=== PATIENT | female | born 1985 | race Caucasian/White ===

== ENCOUNTER 2017-01-21 20:41 | Emergency (ER) | payer SELFPAY ==
[2017-01-21] MEDS ORDERED: Ondansetron INJ* 2 MG/ML VIAL IV ONE (21:07)
[2017-01-21] MEDS ORDERED: HYDROmorphone* 1 MG/ML 1 ML SYR IV ONE (21:07)
[2017-01-21] MEDS ORDERED: NS 0.9% 1000 ML* 1,000 ML IV ONE (21:07)
[2017-01-21 21:30] LABS: Hematocrit 35 % (35-47); Hemoglobin 11.9 g/dl (12.0-16.0); Mean Corpuscular HGB Conc 34 g/dl (31-36); Mean Corpuscular Hemoglobin 33 pg (27-31); Mean Corpuscular Volume 99 fL (80-97); Mean Platelet Volume 8 um3 (7.4-10.4); Red Blood Count 3.58 10^6/ul (4.0-5.4); Red Cell Distribution Width 13 % (10.5-15); White Blood Count 26.3 10^3/ul (3.5-10.8)
[2017-01-21 21:32] LABS: Add Diff/Slide Review? Slide Review Added; Comments Flag Yes
[2017-01-21 21:46] LABS: ALT 10 U/L (7-52); AST 13 U/L (13-39); Albumin 3.9 g/dL (3.2-5.2); Alkaline Phosphatase 45 U/L (34-104); Anion Gap 4 mmol/L (2-11); BUN/Creatinine Ratio 14.5 (8-20); Blood Urea Nitrogen 12 mg/dL (6-24); C Reactive Protein < 1.00 mg/L (< 5.00); CO2 Carbon Dioxide 25 mmol/L (22-32); Calcium 8.6 mg/dL (8.6-10.3); Chloride 109 mmol/L (101-111); EGFR African American 102.5 (>60); EGFR Non-African American 79.7 (>60); Globulin 2.7 g/dL (2-4); Glucose 113 mg/dL (70-100); Lipase 27 U/L (11.0-82.0); Potassium 3.6 mmol/L (3.5-5.0); Sodium 138 mmol/L (133-145); Total Protein 6.6 g/dL (6.4-8.9)
[2017-01-21] MEDS ORDERED: Iohexol 300* (CONTRAST) 10 ML SDV IV ONE (22:01)
--- NOTE | 2017-01-21 23:25 | ED ---
Jaja Ricci Edward, scribed for Stefan Land MD on 01/21/17 at 2112 . Complex/Multi-Sys Presentation - HPI Summary HPI Summary: 31 y/o female BIBA c/o N/V. Symptoms started at around 17:30 after the patient ate dinner. N/V now resolved. Associated sx: diffuse ABD pain characterized as a sharp pain, radiating to back. Patient states she is allergic to Penicillin. PMHx pyelonephritis. - History Of Current Complaint Chief Complaint: EDNauseaVomitDiarrh Time Seen by Provider: 01/21/17 20:58 Hx Obtained From: Patient Onset/Duration: Sudden Onset, Lasting Hours - Since 17:30 today Character: Sharp Associated Signs And Symptoms: Positive: Nausea, Vomiting, Abdominal Pain - radiating to her back. Negative: Diarrhea - Allergies/Home Medications Allergies/Adverse Reactions: Allergies Allergy/AdvReac Type Severity Reaction Status Date / Time Penicillins [PCN] Allergy Unknown Verified 01/21/17 20:53 Reaction Details PMH/Surg Hx/FS Hx/Imm Hx Previously Healthy: No GI History: Reports: Other GI Disorders - Gastrits History: Reports: Hx Kidney Infection, Hx Renal Disease Psychiatric History: Reports: Hx Anxiety, Hx Depression, Hx Community Mental Health [place] - [facility]: Ameena [facility] - Immunization History Date of Tetanus Vaccine: Unknown Date of Influenza Vaccine: None Infectious Disease History: No Infectious Disease History: Denies: Traveled Outside the [place] in Last 30 Days - Family History Known Family History: Positive: Diabetes, Other - Hodgkin's lymphoma - Social History Occupation: Unemployed Lives: With Family Alcohol Use: None Substance Use Type: Reports: Marijuana Substance Use Comment - Amount & Last Used: daily Smoking Status (MU): Never Smoked Tobacco Review of Systems Constitutional: Negative Eyes: Negative ENT: Negative Cardiovascular: Negative Respiratory: Negative Positive: Abdominal Pain, Vomiting, Nausea. Negative: Diarrhea Genitourinary: Negative Musculoskeletal: Negative Skin: Negative Neurological: Negative Psychological: Normal All Other Systems Reviewed And Are Negative: Yes Physical Exam Triage Information Reviewed: Yes Vital Signs On Initial Exam: Initial Vitals Temp Pulse Resp BP Pulse Ox 98.3 F 79 16 91/57 100 01/21/17 20:50 01/21/17 20:50 01/21/17 20:50 01/21/17 20:50 01/21/17 20:50 Vital Signs Reviewed: Yes Appearance: Positive: Well-Appearing, Pain Distress Skin: Positive: Warm, Skin Color Reflects Adequate Perfusion, Dry Head/Face: Positive: Normal Head/Face Inspection Eyes: Positive: Normal ENT: Positive: Normal ENT inspection Neck: Positive: Supple, Nontender Respiratory/Lung Sounds: Positive: Clear to Auscultation, Breath Sounds Present Cardiovascular: Positive: RRR Abdomen Description: Positive: Nontender, Soft Bowel Sounds: Positive: Present Musculoskeletal: Positive: Normal Neurological: Positive: Normal Psychiatric: Positive: Normal, Affect/Mood Appropriate - Alana Coma Scale Coma Scale Total: 15 Diagnostics - Vital Signs Vital Signs Temp Pulse Resp BP Pulse Ox 01/21/17 20:50 98.3 F 79 16 91/57 100 - Laboratory Lab Results: Lab Results 01/21/17 01/21/17 01/21/17 Range/Units 21:22 21:22 21:22 WBC 26.3 H (3.5-10.8) 10^3/ul RBC 3.58 L (4.0-5.4) 10^6/ul Hgb 11.9 L (12.0-16.0) g/dl Hct 35 (35-47) % MCV 99 H (80-97) fL MCH 33 H (27-31) pg MCHC 34 (31-36) g/dl RDW 13 (10.5-15) % Plt Count 316 (150-450) 10^3/ul MPV 8 (7.4-10.4) um3 Neut % (Auto) 89.8 H (38-83) % Lymph % (Auto) 5.7 L (25-47) % [place] % (Auto) 4.1 (1-9) % Eos % (Auto) 0.2 (0-6) % Baso % (Auto) 0.2 (0-2) % Absolute Neuts (auto) 23.6 H (1.5-7.7) 10^3/ul Absolute Lymphs (auto) 1.5 (1.0-4.8) 10^3/ul Absolute Monos (auto) 1.1 H (0-0.8) 10^3/ul Absolute Eos (auto) 0.1 (0-0.6) 10^3/ul Absolute Basos (auto) 0.1 (0-0.2) 10^3/ul Absolute Nucleated RBC 0 10^3/ul Nucleated RBC % 0 Sodium 138 (133-145) mmol/L Potassium 3.6 (3.5-5.0) mmol/L Chloride 109 (101-111) mmol/L Carbon Dioxide 25 (22-32) mmol/L Anion Gap 4 (2-11) mmol/L BUN 12 (6-24) mg/dL Creatinine 0.83 (0.51-0.95) mg/dL Est GFR ( Amer) 102.5 (>60) Est GFR (Non-Af Amer) 79.7 (>60) BUN/Creatinine Ratio 14.5 (8-20) Glucose 113 H (70-100) mg/dL Lactic Acid 1.0 (0.5-2.0) mmol/L Calcium 8.6 (8.6-10.3) mg/dL Total Bilirubin 0.40 (0.2-1.0) mg/dL AST 13 (13-39) U/L ALT 10 (7-52) U/L Alkaline Phosphatase 45 (34-104) U/L C-Reactive Protein < 1.00 (< 5.00) mg/L Total Protein 6.6 (6.4-8.9) g/dL Albumin 3.9 (3.2-5.2) g/dL Globulin 2.7 (2-4) g/dL Albumin/Globulin Ratio 1.4 (1-3) Lipase 27 (11.0-82.0) U/L Beta HCG, Quant < 0.60 mIU/mL Result Diagrams: 01/21/17 21:22 01/21/17 21:22 Lab Statement: Any lab studies that have been ordered have been reviewed, and results considered in the medical decision making process. Re-Evaluation - Re-Evaluation 1 Re-Evaluation Time: 21:35 Change: Improved Complex Multi-Symp Course/Dx Course Of Treatment: Ms. Maravilla presented with severe diffuse abdominal pain and vomiting. She improved with meds and fluids. Her WBC's were 26K and she is awaiting CT. - Diagnoses Provider Diagnoses: Abdominal pain Discharge - Discharge Plan Condition: Stable Disposition: OTHER Discharge Disposition Comment: Signed out to Dr. Martinez Patient Education Materials: Abdominal Pain (ED) Referrals: [facility] [place] PHYSICIAN REFERRAL [Outside] - 3 Days (Please f/u in 2-3 days) The documentation as recorded by the Jaja barrios Edward accurately reflects the service I personally performed and the decisions made by me, Stefan Land MD.
[2017-01-22] MEDS ORDERED: Ondansetron INJ* 2 MG/ML VIAL IV ONE (00:32)
[2017-01-22] MEDS ORDERED: Ondansetron INJ* 2 MG/ML VIAL ONE (00:33)
[2017-01-22] MEDS ORDERED: NS 0.9% 1000 ML* 1,000 ML IV ONE ×2 (02:34→03:56)
[2017-01-22 03:17] LABS: Urine Bilirubin Negative (Negative); Urine Glucose Negative (Negative); Urine Nitrite Negative (Negative)
[2017-01-22] MEDS ORDERED: Ketorolac INJ* 30 MG/ML 1 ML VIAL IV ONE (03:56)
[2017-01-22] MEDS ORDERED: Ondansetron ODT TAB* 4 MG PO ONE (03:56)
--- NOTE | 2017-01-22 04:02 | ED ---
I, Pamela Traore, scribed for Conrado Martinez MD on 01/22/17 at 0033 . Progress - Progress Note Progress Note: Pt was signed out from Dr. Land, pending dispo, awaiting CT Abd/Pel results. CT Abd/Pel reveals: 15 mm collapsing left ovarian cyst moderate amount of pelvic free fluid. Re-Evaluation - Re-Evaluation First Eval Re-Evaluation Time: 02:30 Change: Improved Comment: Discussed CT and lab results with the pt. Pain is improved, 3-4/10 around the umbilicus. Still slightly nauseous, much improved from when she came in. Will give IV fluids, try PO and run a UA. Second Eval Re-Evaluation Time: 03:56 Change: Improved Comment: She is doing a bit better. Will give Toradol IV then another trial of PO, then the pt is interested in going home Course/Dx - Course Course Of Treatment: NO CRITICAL CARE TIME. IMPROVED IN ED. DISCUSSED RESULTS WITH PATIENT. PAIN AND VOMITING STARTED AT THE SAME TIME IN MID AND UPPER ABDOMEN, NOT IN LLQ WERE CYST WAS SEEN ON CT. - Diagnoses Provider Diagnoses: Abdominal pain, Ovarian cyst, Vomiting, Dehydration The documentation as recorded by the bernieibLeón parsons Rebecca accurately reflects the service I personally performed and the decisions made by me, Conrado Martinez MD.
[2017-01-22 05:50] VITALS: BP 90/44
--- NOTE | 2017-01-22 07:56 | RAD ---
INDICATION: Diffuse abdominal pain in a 31-year-old COMPARISON: None TECHNIQUE: Axial source images were obtained from the hemidiaphragms to the symphysis pubis following administration of oral and intravenous contrast. 66.8 mL Omnipaque 300 was utilized. Coronal and sagittal reconstructed images were acquired. Lung bases: The lung bases are clear. Liver: The liver is top normal in size. There are no masses. There is no ductal dilatation. Gallbladder: There are no calcified gallstones. There is no evidence of wall thickening or pericholecystic fluid. Spleen: The spleen is normal in size. There are no masses. Pancreas: There is no focal pancreatic mass or ductal dilatation. Adrenal glands: There is no evidence of adrenal mass. Kidneys: The kidneys are normal in size and position. There are prompt nephrograms and there is prompt excretion bilaterally. There are no renal parenchymal masses. There is no evidence of nephrolithiasis. Adenopathy: There is no evidence of adenopathy by size criteria. Fluid collections: Moderate free fluid in the dependent portion of the pelvis. Vessels:There are no significant atherosclerotic changes involving the aorta. There is no focal aneurysm. The iliac vessels are normal in caliber. The IVC appears normal. GI tract: There are no acute CT bowel findings. There is no obstruction. The stomach and small bowel appear normal. The lower GI tract is normal. The cecum, ileocecal valve, and terminal ileum appear normal. The appendix is visualized and appear normal. Pelvic organs: The uterus and right adnexa appear normal. There is a 2.1 cm involuting or hemorrhagic left ovarian cyst Bladder: There are no bladder masses. Abdominal and pelvic soft tissues: The extraperitoneal abdominal and pelvic soft tissues appear normal.. Osseous structures: There are no acute osseous findings. Other: None IMPRESSION: MODERATE FREE FLUID WITH 2.1 CM INVOLUTING OR HEMORRHAGIC LEFT OVARIAN CYST.
== END 2017-01-22 05:51 | disposition home or self-care (01) ==
LOC: ED 20:41
DX: R10.84 Generalized abdominal pain (principal); R11.2 Nausea with vomiting, unspecified; N83.202 Unspecified ovarian cyst, left side; Z32.02 Encounter for pregnancy test, result negative; N28.9 Disorder of kidney and ureter, unspecified; F41.9 Anxiety disorder, unspecified; F32.9 Major depressive disorder, single episode, unspecified; Z88.0 Allergy status to penicillin; F12.90 Cannabis use, unspecified, uncomplicated
CPT/HCPCS: 36415; 74177; 80053; 81003; 83605; 83690; 84702; 85025; 86140; 96361; 96374; 96375; 96376; 99285; A9270-GY; J1170; J1885; J2405; Q9967

== ENCOUNTER 2017-12-09 07:47 | Emergency (ER) | payer SELFPAY ==
[2017-12-09] MEDS ORDERED: Al Hydrox/Mg Hydrox/Simet LIQ* 30 ML UDC PO ONE (09:29)
[2017-12-09] MEDS ORDERED: Lidocaine 2% VISCOUS* 15 ML UDC PO ONE (09:29)
[2017-12-09 09:34] LABS: ABS Basophils 0.1 10^3/ul (0-0.2); ABS Eosinophils 0.1 10^3/ul (0-0.6); ABS Lymphocytes 1.7 10^3/ul (1.0-4.8); ABS Monocytes 0.7 10^3/ul (0-0.8); ABS Neutrophils 10.1 10^3/ul (1.5-7.7); ABS Nucleated RBC 0 10^3/ul; Eosinophil % 0.5 % (0-6); Hematocrit 39 % (35-47); Lymphocyte % 13.2 % (25-47); Mean Corpuscular HGB Conc 34 g/dl (31-36); Mean Corpuscular Hemoglobin 33 pg (27-31); Mean Corpuscular Volume 97 fL (80-97); Mean Platelet Volume 7.9 um3 (7.4-10.4); Nucleated Red Blood Cells % 0.1; Platelet Count 364 10^3/ul (150-450); Red Blood Count 4.01 10^6/ul (4.0-5.4); Red Cell Distribution Width 13 % (10.5-15); White Blood Count 12.7 10^3/ul (3.5-10.8)
--- NOTE | 2017-12-09 09:34 | ED ---
Throat Pain/Nasal Congestion - HPI Summary HPI Summary: Patient here with oral burning over the past week. She reports her cheeks, tongue, lips and gingiva all feel like they're on fire. She has pain with biting evening to soft food. She is been eating ice/rubbing ice on her lips which is the only thing that seems to calm her symptoms. She denies trauma to her mouth from hot or spicy food. She admits her gums seemed to be receding and more inflamed than usual. Cocnerned she may have gingivitis - has not seen a dentist in many years out of fear. Cracked her Rt rear molar along mandible a couple of weeks ago - has plan to see dentist in [facility]. Also admits she eats a lot of candy, drinks soda alternating with milk and she has lactose intolerance. Smokes cigarettes and marijuana in cigar leaf tobacco daily since she was 15. Has a strong history of GERD as well which is untreated at this time. Reports she's been seen by GI in the past and has had a scope indicating esophagitis. She was on Prilosec and Prevacid in the past without relief although she continued to contributing foods/smoke. She states she is a single mom of a 4-year-old who would've gone into rehabilitation for her marijuana addiction years ago however she has no one to help her with her care. When she stops smoking marijuana she has difficult time sleeping and extremely anxiety. She denies taking any other medications. She has taken Flintstones vitamins in the past however she currently takes no supplementation of minerals are vitamins admits she eats goldfish for breakfast and lunch and one meal in the evening which typically entails spaghetti, hamburger helper, etc. Reports she has struggled with gastrointestinal issues throughout most of her teenage years and into adult life. Has seen gastroenterology and was told she does not have Crohn's disease, ulcerative colitis or celiac dz. - History of Current Complaint Chief Complaint: EDDentalPain Time Seen by Provider: 12/09/17 08:32 Hx Obtained From: Patient - Allergies/Home Medications Allergies/Adverse Reactions: Allergies Allergy/AdvReac Type Severity Reaction Status Date / Time No Known Allergies Allergy Verified 12/09/17 08:01 PMH/Surg Hx/FS Hx/Imm Hx Previously Healthy: Yes Endocrine/Hematology History: Denies: Hx Diabetes Cardiovascular History: Denies: Hx Hypertension GI History: Reports: Hx Gastroesophageal Reflux Disease - chronic, untx'd, Other GI Disorders - Gastrits, esophagitis, lactose intolerance History: Reports: Hx Kidney Infection, Hx Renal Disease Denies: Hx Dialysis Psychiatric History: Reports: Hx Anxiety, Hx Depression, Hx Community Mental Health Tx - [facility]: [facility]ena [facility], Hx Substance Abuse - marijuana - smokes 4-6 x day x years - can't quit - Immunization History Date of Tetanus Vaccine: Unknown Date of Influenza Vaccine: None Infectious Disease History: No Infectious Disease History: Denies: Traveled Outside the [place] in Last 30 Days - Family History Known Family History: Positive: Diabetes, Other - Hodgkin's lymphoma - Social History Occupation: Employed Full-time Lives: With Family - 4 y.o. son Alcohol Use: None Hx Substance Use: Yes Substance Use Type: Reports: Marijuana Substance Use Comment - Amount & Last Used: daily Hx Tobacco Use: Yes Smoking Status (MU): Current Every Day Smoker Review of Systems Constitutional: Negative Negative: Fever, Chills, Fatigue Eyes: Negative ENT: Other - oral pain Cardiovascular: Negative Respiratory: Negative Gastrointestinal: Other - GERD Genitourinary: Negative Musculoskeletal: Negative Skin: Negative Neurological: Negative Positive: Anxious - stressed All Other Systems Reviewed And Are Negative: Yes Physical Exam Triage Information Reviewed: Yes Vital Signs On Initial Exam: Initial Vitals Temp Pulse Resp BP Pulse Ox 98.8 F 88 16 134/71 98 12/09/17 07:57 12/09/17 07:57 12/09/17 07:57 12/09/17 07:57 12/09/17 07:57 Vital Signs Reviewed: Yes Appearance: Positive: Well-Appearing, Well-Nourished, Pain Distress - pt rubbing ice pieces over her lips throughout conversation Skin: Positive: Warm, Skin Color Reflects Adequate Perfusion, Dry Head/Face: Positive: Normal Head/Face Inspection Eyes: Positive: Normal, EOMI ENT: Positive: Hearing grossly normal, Pharynx normal, TMs normal. Negative: Nasal congestion, Nasal drainage, Tonsillar swelling, Tonsillar exudate, Trismus , Muffled voice Dental: Positive: Dental Fracture @ - #31 missing enamal along posterior aspect - no draniage, no edema or erythema of surrounding ginvigiva moreso than mild erythema of all gingiva Neck: Positive: Supple, Nontender, No Lymphadenopathy Respiratory/Lung Sounds: Positive: Clear to Auscultation, Breath Sounds Present Cardiovascular: Positive: Normal, RRR Bowel Sounds: Positive: Present Musculoskeletal: Positive: Normal, Strength/ROM Intact Neurological: Positive: Normal, Sensory/Motor Intact, Alert, Oriented to Person Place, Time, CN Intact II-III Psychiatric: Positive: Anxious - tearful when discussing marijuana dependence Diagnostics - Vital Signs Vital Signs Temp Pulse Resp BP Pulse Ox 12/09/17 07:57 98.8 F 88 16 134/71 98 - Laboratory Result Diagrams: 12/09/17 09:20 Lab Statement: Any lab studies that have been ordered have been reviewed, and results considered in the medical decision making process. EENT Course/Dx - Course Course Of Treatment: Patient presents with symptoms of her mouth lips and tongue burning over the past week. She does admit heard gum seemed to be a bit more inflamed however she has no lesions or sores in her mouth. Her tooth is cracked along the right posterior mandible does not seem to be causing all of the pain in her mouth. She also reports that she has a nutrient deficient diet and smokes marijuana/tobacco daily. Initial differential was to assess for some causes of burning mouth syndrome including vitamin deficiencies and hypothyroidism. Her vitamin levels as of today are within normal limits and TSH is within normal ranges well. Additional vitamin tests will return in the next weekpatient will receive a call if abnormal but also encouraged to call here if she has not heard any results. We'll treat for gingivitis today and encouraged her to follow up with dentist. Discussion about GERD. She admits she has known and symptomatic lactose intolerance however she continues to drink milk and eat ice cream. Explained that chronic esophagitis can lead to Doan's esophagus which can lead to cancer. She will make a concerted effort to stop drinking milk and eating ice cream and if she does want to try these in the future she will do them with Lactaid. Strongly encouraged her to follow up with a PCP for further evaluation here. Patient reports she has no insurance however we'll continue to try to follow-up at the free clinic. Also provided her with care clinic information today. Review danger signs and symptoms of when to return to the emergency department. Patient agrees with plan. - Diagnoses Provider Diagnoses: Gingivitis, GERD (gastroesophageal reflux disease) Discharge - Sign-Out/Discharge Documenting (check all that apply): Discharge/Admit/Transfer - Discharge Plan Condition: Stable Disposition: HOME Prescriptions: Chlorhexidine MOUTHWASH 0.12%* [Peridex Mouth Wash 0.12%*] 15 ml .SEE ORDER BID #1 bottle Patient Education Materials: Gingivitis (ED), Gastroesophageal Reflux Disease in Children (ED) Referrals: No Primary Care Phys,NOPCP [Primary Care Provider] - [facility] [Outside] Additional Instructions: You may treat for gingivitis with the antibiotic mouthwash provided at her pharmacy. Please also read education guidelines to reduce her symptoms and improve your ability to heal. Follow-up with dentist. Call tomorrow to schedule an appointment. *If the burning sensation is mouth does not reduce, follow-up with PCP for further workup. Labs have been drawn but will not be back until next week. If you do not receive a call, return a phone call to the emergency department for you results. This area code [phone]. For your heartburn and digestive issues, and is strongly encouraged to follow up with engine builder as prolonged esophagitis can lead to Doan's esophagus which can lead to cancer. You have agreed to remove milk/dairy from your diet as you have lactose intolerance. This is most likely exacerbating her current condition. If he would like to try milk in the future, try Lactaid pills or Lactaid products. He may return to free clinic or try seeing a provider at the care clinic (contact information provided here). *If he developed worsening of pain, coffee ground vomit, bloody vomit, bloody or black stool, return to the emergency department. - Billing Disposition and Condition Condition: STABLE Disposition: Home
[2017-12-09 11:48] VITALS: BP 117/86
[2017-12-11 15:55] LABS: Vitamin B2 Level 13 mcg/L (1-19)
== END 2017-12-09 11:46 | disposition home or self-care (01) ==
LOC: ED 07:47
DX: K05.10 Chronic gingivitis, plaque induced (principal); K21.9 Gastro-esophageal reflux disease without esophagitis; K03.81 Cracked tooth; E73.9 Lactose intolerance, unspecified; F17.290 Nicotine dependence, other tobacco product, uncomplicated
CPT/HCPCS: 36415; 82542; 82607; 82746; 83540; 83550; 84207; 84252; 84425; 84443; 85025; 86140; 99282; A9270-GY

== ENCOUNTER 2018-06-25 10:47 | Emergency (ER) | payer SELFPAY ==
[2018-06-25] MEDS ORDERED: Clindamycin CAP* 150 MG PO ONE (11:11)
--- NOTE | 2018-06-25 11:19 | ED ---
Throat Pain/Nasal Congestion - HPI Summary HPI Summary: A 33 y/o female presents to the ED c/o tooth pain. Currently, the patient is still experiencing tooth pain on the right bottom teeth reaching 7/10 in severity. As per triage, "all of her teeth", chipped about 1.5 years ago, no insurance month ago started with swelling, pain". According to the patient, she broke a tooth in half 1.5 years ago, and now she is hurting all over her gums and teeth. She stated that she noticed that it is swelling. Additionally, she experiences right ear pain that started this morning. She noted that she cannot sleep with the pain as it keeps waking her up. She stated that she has been gargling salt water to alleviate the pain as well as taking Advil. She asked for some stronger pain medications to alleviate her pain as Advil doesn't help much. She does not like being touched with utensils. No allergies to medications. - History of Current Complaint Chief Complaint: EDDentalPain Time Seen by Provider: 06/25/18 11:02 Hx Obtained From: Patient Onset/Duration: Sudden Onset, Lasting Days, Still Present Severity: Moderate - 7/10 Associated Signs And Symptoms: Positive: Negative Cough: None - Allergies/Home Medications Allergies/Adverse Reactions: Allergies Allergy/AdvReac Type Severity Reaction Status Date / Time No Known Allergies Allergy Verified 06/25/18 10:56 PMH/Surg Hx/FS Hx/Imm Hx Endocrine/Hematology History: Denies: Hx Diabetes Cardiovascular History: Denies: Hx Hypertension GI History: Reports: Hx Gastroesophageal Reflux Disease - chronic, untx'd, Other GI Disorders - Gastrits, esophagitis, lactose intolerance History: Reports: Hx Kidney Infection, Hx Renal Disease Denies: Hx Dialysis Psychiatric History: Reports: Hx Anxiety, Hx Depression, Hx [facility], Hx Substance Abuse - marijuana - smokes 4-6 x day x years - can't quit - Surgical History Surgery Procedure, Year, and Place: WISDOM TEETH REMOVAL AND , PER PATIENT. - Immunization History Date of Tetanus Vaccine: Unknown Date of Influenza Vaccine: None Infectious Disease History: No Infectious Disease History: Denies: Traveled Outside the [place] in Last 30 Days - Family History Known Family History: Positive: Diabetes, Other - Hodgkin's lymphoma - Social History Alcohol Use: None Hx Substance Use: Yes Substance Use Type: Reports: Marijuana Substance Use Comment - Amount & Last Used: daily Hx Tobacco Use: Yes Smoking Status (MU): Current Every Day Smoker Review of Systems Negative: Fever Positive: Dental Pain, Ear Ache All Other Systems Reviewed And Are Negative: Yes Physical Exam - Summary Physical Exam Summary: Appearance: Well appearing, no pain distress Skin: warm, dry, reflects adequate perfusion Head/face: normal Eyes: EOMI, KEON ENT: tenderness on 29th and 30th teeth. Neck: supple, non-tender Respiratory: CTA, breath sounds present Cardiovascular: RRR, pulses symmetrical Abdomen: non-tender, soft Musculoskeletal: normal, strength/ROM intact Neuro: normal, sensory motor intact, A&Ox3 Triage Information Reviewed: Yes Vital Signs On Initial Exam: Initial Vitals Temp Pulse Resp BP Pulse Ox 97.7 F 73 16 127/72 100 06/25/18 10:54 06/25/18 10:54 06/25/18 10:54 06/25/18 10:54 06/25/18 10:54 Vital Signs Reviewed: Yes Diagnostics - Vital Signs Vital Signs Temp Pulse Resp BP Pulse Ox 06/25/18 10:54 97.7 F 73 16 127/72 100 - Laboratory Lab Statement: Any lab studies that have been ordered have been reviewed, and results considered in the medical decision making process. EENT Course/Dx - Course Course Of Treatment: A 33 y/o female presents to the ED c/o tooth pain. Currently, the patient is still experiencing tooth pain on the right bottom teeth reaching 7/10 in severity. According to the patient, she broke a tooth in half 1.5 years ago, and now she is hurting all over her gums and teeth. She stated that she noticed that it is swelling. Additionally, she experiences right ear pain that started this morning. Physical examination findings significant for tenderness on the 29th and 30th teeth. No laboratory scans were done. No hematology screens were done. In the ED course, the patient received Cleocin. Patient will be discharged with a diagnosis of dental pain. Patient will be sent home with prescriptions for Ultram and Clindamycin. Patient is to follow up with primary care provider in 2-3 days. Patient is to return to ED for any new or worsening symptoms. Patient is agreeable with this plan. - Diagnoses Provider Diagnoses: Pain, dental Discharge - Sign-Out/Discharge Documenting (check all that apply): Patient Departure - DISCHARGE - Discharge Plan Condition: Stable Disposition: HOME Prescriptions: Clindamycin HCl 300 mg PO QID #40 capsule Tramadol HCl [Ultram] 50 mg PO TID #6 tab MDD 3 Patient Education Materials: Toothache (ED) Referrals: [facility] [Outside] - 3 Days Additional Instructions: FOLLOW UP WITH PRIMARY CARE PROVIDER OR [facility] IN 2-3 DAYS. TAKE MEDICATIONS PRESCRIBED. RETURN TO ED FOR ANY NEW OR WORSENING SYMPTOMS. - Attestation Statements Document Initiated by Scribe: Yes Documenting Scribe: Harpal Watters Provider For Whom Scribe is Documenting (Include Credential): Saroj Lawler MD Scribe Attestation: Harpal Ricci, scribed for Saroj Lawler MD on 06/25/18 at 1123. Status of Scribe Document: Ready
[2018-06-25 11:38] VITALS: BP 00/00
== END 2018-06-25 11:37 | disposition home or self-care (01) ==
LOC: ED 10:47
DX: K08.89 Other specified disorders of teeth and supporting structures (principal); Z72.0 Tobacco use; K21.9 Gastro-esophageal reflux disease without esophagitis
CPT/HCPCS: 99281; A9270-GY

== ENCOUNTER 2019-03-15 10:25 | Emergency (ER) | payer SELFPAY ==
[2019-03-15 11:38] LABS: ABS Basophils 0.1 10^3/ul (0-0.2); ABS Eosinophils 0.2 10^3/ul (0-0.6); ABS Lymphocytes 1.9 10^3/ul (1.0-4.8); ABS Monocytes 0.8 10^3/ul (0-0.8); ABS Neutrophils 8.9 10^3/ul (1.5-7.7); Eosinophil % 1.5 %; Hematocrit 37 % (35-47); Hemoglobin 12.5 g/dL (12.0-16.0); Lymphocyte % 15.9 %; Mean Corpuscular HGB Conc 34 g/dL (31-36); Mean Corpuscular Hemoglobin 33 pg (27-31); Mean Corpuscular Volume 97 fL (80-97); Mean Platelet Volume 7.8 fL (7.4-10.4); Nucleated Red Blood Cells % 0.1; Platelet Count 354 10^3/uL (150-450); Red Blood Count 3.84 10^6 /uL (3.70-4.87); Red Cell Distribution Width 13 % (10-15); White Blood Count 11.9 10^3/uL (3.5-10.8)
[2019-03-15 11:44] LABS: INR 0.93 (0.82-1.09)
[2019-03-15 11:56] LABS: ALT 8 U/L (7-52); AST 13 U/L (13-39); Albumin/Globulin Ratio 1.5 (1-3); Alkaline Phosphatase 64 U/L (34-104); BUN/Creatinine Ratio 16.2 (8-20); Blood Urea Nitrogen 12 mg/dL (6-24); CO2 Carbon Dioxide 32 mmol/L (22-32); Calcium 8.9 mg/dL (8.6-10.3); Chloride 104 mmol/L (101-111); EGFR African American 108.7 (>60); EGFR Non-African American 89.8 (>60); Globulin 2.6 g/dL (2-4); Glucose 83 mg/dL (70-100); Potassium 3.8 mmol/L (3.5-5.0); Sodium 136 mmol/L (135-145); Total Protein 6.6 g/dL (6.4-8.9)
--- NOTE | 2019-03-15 12:18 | ED ---
HPI Chest Pain - HPI Summary HPI Summary: This pt is a 33 y/o female presenting to [facility] c/o right sided chest pain since 2 days ago. Pt reports she woke up 2 days ago with sudden onset of chest pain. She describes right sided chest pain radiating to her back. Her pain is aggravated with breathing and coughing. Additionally she notes she is unable to lie on her right side secondary to pain. Denies any other symptoms, SOB, abd pain. She has not taken any medications [employer]. Pt is a heavy smoker. She denies taking any control pills. PMHx includes lactose intolerant. - History of Current Complaint Chief Complaint: EDChestWallPain Time Seen by Provider: 03/15/19 12:05 Hx Obtained From: Patient Onset/Duration: Started Days Ago, Still Present Timing: Lasting Days Current Severity: Moderate Pain Intensity: 7 Pain Scale Used: 0-10 Numeric Chest Pain Location: Right Anterior Chest Pain Radiates: Yes Chest Pain Radiates To:: Back Aggravating Factor(s): Position, Deep Breaths, Other: - cough Alleviating Factor(s): Nothing Associated Signs and Symptoms: Positive: Chest Pain. Negative: Shortness of Breath, Fever, Chills - Allergy/Home Medications Allergies/Adverse Reactions: Allergies Allergy/AdvReac Type Severity Reaction Status Date / Time No Known Allergies Allergy Verified 06/25/18 10:56 PMH/Surg Hx/FS Hx/Imm Hx Endocrine/Hematology History: Denies: Hx Diabetes Cardiovascular History: Denies: Hx Hypertension GI History: Reports: Hx Gastroesophageal Reflux Disease - chronic, untx'd, Other GI Disorders - Gastrits, esophagitis, lactose intolerance History: Reports: Hx Kidney Infection, Hx Renal Disease Denies: Hx Dialysis Psychiatric History: Reports: Hx Anxiety, Hx Depression, Hx [facility], Hx Substance Abuse - marijuana - smokes 4-6 x day x years - can't quit - Surgical History Surgery Procedure, Year, and Place: WISDOM TEETH REMOVAL AND , PER PATIENT. - Immunization History Date of Tetanus Vaccine: Unknown Date of Influenza Vaccine: None Infectious Disease History: No Infectious Disease History: Denies: Traveled Outside the [place] in Last 30 Days - Family History Known Family History: Positive: Diabetes, Other - Hodgkin's lymphoma - Social History Alcohol Use: None Hx Substance Use: Yes Substance Use Type: Reports: Marijuana Substance Use Comment - Amount & Last Used: daily Hx Tobacco Use: Yes Smoking Status (MU): Current Every Day Smoker Review of Systems Negative: Fever, Chills Positive: Chest Pain Negative: Shortness Of Breath Negative: Abdominal Pain All Other Systems Reviewed And Are Negative: Yes Physical Exam - Summary Physical Exam Summary: GENERAL: Patient is a well-developed and nourished female who is lying comfortable in the stretcher. Patient is not in any acute respiratory distress. HEAD AND FACE: Normocephalic EYES: PERRLA, EOMI x 2. EARS: Hearing grossly intact. MOUTH: Oropharynx within normal limits. NECK: Supple, trachea is midline, no adenopathy, no JVD, no carotid bruit. CHEST: Symmetric, tenderness to palpation on the right rib area. LUNGS: Clear to auscultation bilaterally. No wheezing or crackles. CVS: Regular rate and rhythm, S1 and S2 present, no murmurs or gallops appreciated. ABDOMEN: Soft, non-tender. Bowel sounds are normal. No abnormal abdominal pulsations. EXTREMITIES: Full ROM in all major joints, no edema, no cyanosis or clubbing. NEURO: Alert and oriented x 3. No acute neurological deficits. Speech is normal and follows commands. SKIN: Dry and warm Triage Information Reviewed: Yes Vital Signs On Initial Exam: Initial Vitals Temp Pulse Resp BP Pulse Ox 98.3 F 82 20 117/73 100 03/15/19 10:34 03/15/19 10:34 03/15/19 10:34 03/15/19 10:34 03/15/19 10:34 Vital Signs Reviewed: Yes Diagnostics - Vital Signs Vital Signs Temp Pulse Resp BP Pulse Ox 03/15/19 11:48 67 13 100 03/15/19 11:30 96.5 F 78 20 100/62 100 03/15/19 10:34 98.3 F 82 20 117/73 100 - Laboratory Lab Results: Lab Results 03/15/19 03/15/19 03/15/19 Range/Units 11:24 11:24 11:24 WBC 11.9 H (3.5-10.8) 10^3/uL RBC 3.84 (3.70-4.87) 10^6 /uL Hgb 12.5 (12.0-16.0) g/dL Hct 37 (35-47) % MCV 97 (80-97) fL MCH 33 H (27-31) pg MCHC 34 (31-36) g/dL RDW 13 (10-15) % Plt Count 354 (150-450) 10^3/uL MPV 7.8 (7.4-10.4) fL Neut % (Auto) 75.4 % Lymph % (Auto) 15.9 % Amelia % (Auto) 6.8 % Eos % (Auto) 1.5 % Baso % (Auto) 0.4 % Absolute Neuts (auto) 8.9 H (1.5-7.7) 10^3/ul Absolute Lymphs (auto) 1.9 (1.0-4.8) 10^3/ul Absolute Monos (auto) 0.8 (0-0.8) 10^3/ul Absolute Eos (auto) 0.2 (0-0.6) 10^3/ul Absolute Basos (auto) 0.1 (0-0.2) 10^3/ul Absolute Nucleated RBC 0.0 10^3/ul Nucleated RBC % 0.1 INR (Anticoag Therapy) 0.93 (0.82-1.09) Sodium 136 (135-145) mmol/L Potassium 3.8 (3.5-5.0) mmol/L Chloride 104 (101-111) mmol/L Carbon Dioxide 32 (22-32) mmol/L BUN 12 (6-24) mg/dL Creatinine 0.74 (0.51-0.95) mg/dL Est GFR ( Amer) 108.7 (>60) Est GFR (Non-Af Amer) 89.8 (>60) BUN/Creatinine Ratio 16.2 (8-20) Glucose 83 (70-100) mg/dL Calcium 8.9 (8.6-10.3) mg/dL Total Bilirubin 0.30 (0.2-1.0) mg/dL AST 13 (13-39) U/L ALT 8 (7-52) U/L Alkaline Phosphatase 64 (34-104) U/L Troponin I 0.00 (<0.04) ng/mL Total Protein 6.6 (6.4-8.9) g/dL Albumin 4.0 (3.2-5.2) g/dL Globulin 2.6 (2-4) g/dL Albumin/Globulin Ratio 1.5 (1-3) Result Diagrams: 03/15/19 11:24 03/15/19 11:24 Lab Statement: Any lab studies that have been ordered have been reviewed, and results considered in the medical decision making process. - Radiology Chest XR Radiology Interpretation Completed By: Radiologist Summary of Radiographic Findings: IMPRESSION: No evidence for active cardiopulmonary disease. Dr. Soto has reviewed this report. - EKG 10:28 Cardiac Rate: NL - at 77 bpm EKG Rhythm: Sinus Rhythm Summary of EKG Findings: Normal axis. Re-Evaluation - Re-Evaluation First Eval Re-Evaluation Time: 13:45 Change: Improved Comment: Reviewed results with pt. She will be discharged home with follow up from her PCP. Chest Pain Course/Dx - Course Assessment/Plan: Pt is a 33 y/o female presenting to [facility] c/o right sided chest pain radiating to her back since 2 days ago. Her pain is aggravated with breathing and coughing. Physical exam reveals tenderness to palpation on right sided rib area. Lab results only remarkable for WBC of 11.9. Chest XR is negative for an active cardiopulmonary disease. In the ED course the pt was given Toradol. HEART score is 0. No concern for ACS. Her PERC score is 0. No concern for PE. Based on physical examination this is musculoskeletal pain because her pain is reproducible. I discussed results with patient and she reports feeling better. She is hemodynamically stable and safe for discharge. Strict return precautions given and she will otherwise follow up with her PCP. - Diagnoses Provider Diagnoses: Chest wall pain Discharge ED - Sign-Out/Discharge Documenting (check all that apply): Patient Departure - Discharge home Patient Received Moderate/Deep Sedation with Procedure: No - Discharge Plan Condition: Stable Disposition: HOME Prescriptions: Ibuprofen TAB* [Motrin TAB* 600 MG] 600 mg PO Q8H PRN #24 tab PRN Reason: Pain - Moderate Patient Education Materials: Costochondritis (ED), Chest Wall Pain (ED) Referrals: [facility] [Outside] Additional Instructions: Follow up with your primary care physician in 1-3 days. If you don't have one please follow up with [facility]. RETURN TO THE EMERGENCY DEPARTMENT FOR CHANGING OR WORSENING SYMPTOMS. - Billing Disposition and Condition Condition: STABLE Disposition: Home - Attestation Statements Document Initiated by Scribe: Yes Documenting Scribe: Sandra Shelton Provider For Whom Scribe is Documenting (Include Credential): Zaki Soto MD Scribe Attestation: ISandra, scribed for Zaki Soto MD on 03/15/19 at 2053. Scribe Documentation Reviewed: Yes Provider Attestation: The documentation as recorded by the bernieibeSandra accurately reflects the service I personally performed and the decisions made by me, Zaki Soto MD Status of Scribe Document: Viewed
[2019-03-15] MEDS ORDERED: Ketorolac *IM* INJ* 60 MG/2 ML VIAL IM ONE (12:41)
[2019-03-15 12:51] LABS: HCG Pregnancy < 0.60 mIU/mL
[2019-03-15 13:53] VITALS: BP 106/62
== END 2019-03-15 13:52 | disposition home or self-care (01) ==
LOC: ED 10:25
DX: R07.89 Other chest pain (principal); F17.210 Nicotine dependence, cigarettes, uncomplicated; K21.9 Gastro-esophageal reflux disease without esophagitis; F41.9 Anxiety disorder, unspecified; F32.9 Major depressive disorder, single episode, unspecified; N28.9 Disorder of kidney and ureter, unspecified; Z79.899 Other long term (current) drug therapy
CPT/HCPCS: 36415; 71046; 80053; 84484; 84702; 85025; 85610; 93005; 96372; 99282; J1885

== ENCOUNTER 2021-01-28 23:41 | Inpatient (IN) ==
[2021-01-29] MEDS ORDERED: Buffered Lidocaine 1% SYRIN 1 ml INTRADERM ONE (00:01)
[2021-01-29] MEDS ORDERED: Lactated Ringers 1000 ml BAG 1,000 ML IV ONE (00:01)
[2021-01-29] MEDS ORDERED: ceFOXitin 2 GM IVPREMIX 2 GM/50 ML BAG IVPB ONE (00:07)
[2021-01-29 00:41] LABS: Urine Benzodiazepine Screen None Detected (None Detect); Urine Cannabinoids Screen Presumptive Positive (None Detect); Urine Opiates Screen None Detected (None Detect)
[2021-01-29 00:46] LABS: ABS Basophils 0.1 10^3/ul (0-0.2); ABS Eosinophils 0.2 10^3/ul (0-0.6); ABS Lymphocytes 2.7 10^3/ul (1.0-4.8); ABS Neutrophils 9.7 10^3/ul (1.5-7.7); Eosinophil % 1.2 %; Hematocrit 33 % (35-47); Hemoglobin 11.2 g/dL (12.0-16.0); Lymphocyte % 20.1 %; Mean Corpuscular HGB Conc 34 g/dL (31-36); Mean Corpuscular Hemoglobin 32 pg (27-31); Mean Corpuscular Volume 95 fL (80-97); Mean Platelet Volume 8.5 fL (7.4-10.4); Nucleated Red Blood Cells % 0.1; Platelet Count 405 10^3/uL (150-450); Red Cell Distribution Width 13 % (10-15); White Blood Count 13.7 10^3/uL (3.5-10.8)
[2021-01-29] MEDS ORDERED: Lactated Ringers 1000 ml BAG 1,000 ML IV SCH ×2 (01:00→03:00)
[2021-01-29 01:37] LABS: Urine Appearance Cloudy; Urine Bilirubin Negative (Negative); Urine Blood Negative (Negative); Urine Color Yellow; Urine Glucose Negative (Negative); Urine Ketones Negative (Negative); Urine Nitrite Negative (Negative); Urine Protein Negative (Negative); Urine Specific Gravity 1.009 (1.002-1.030); Urine Urobilinogen Negative (Negative)
[2021-01-29] MEDS ORDERED: oxyCODONE/Acetamin 5/325 mg TAB PO PRN (01:41)
[2021-01-29] MEDS ORDERED: Naloxone 0.4 mg VIAL 0.4 mg/ml 1 ml VIAL IV PRN (01:41)
[2021-01-29] MEDS ORDERED: DiMENhydriNATE IV 50 mg/ml 1 ml VIAL IV PUSH PRN (01:41)
[2021-01-29] MEDS ORDERED: Metoclopramide 5 MG/ML VIAL (10 mg) IV PRN (01:41)
[2021-01-29] MEDS ORDERED: Ondansetron 4 mg VIAL 2 MG/ML 2 ml VIAL IV PRN (01:41)
[2021-01-29] MEDS ORDERED: Dibucaine 1% OINT 28.35 GM TUBE PR PRN (02:09)
[2021-01-29] MEDS ORDERED: Glycerin ADULT 2.4 gm SUPP PR PRN (02:09)
[2021-01-29] MEDS ORDERED: Witch Hazel PAD JAR TOPICAL PRN (02:09)
[2021-01-29] MEDS ORDERED: Calcium Carb (TUMS) 500 mg CHEW TAB PO PRN (02:19)
[2021-01-29] MEDS ORDERED: Oxytocin in LR 20 UNITS/1,000 ML BAG IVPB SCH (03:00)
[2021-01-29] MEDS ORDERED: Acetaminophen IV 1 GM/100ML 100 ML IV ONE (03:11)
[2021-01-29] MEDS ORDERED: Acetaminophen IV 1 GM/100ML 100 ML IV SCH (06:00)
[2021-01-30 06:41] LABS: ABS Lymphocytes 2.6 10^3/ul (1.0-4.8); ABS Monocytes 0.8 10^3/ul (0-0.8); ABS Neutrophils 14.6 10^3/ul (1.5-7.7); Eosinophil % 0.3 %; Hematocrit 32 % (35-47); Hemoglobin 11.2 g/dL (12.0-16.0); Lymphocyte % 14.4 %; Mean Corpuscular HGB Conc 35 g/dL (31-36); Mean Corpuscular Hemoglobin 33 pg (27-31); Mean Corpuscular Volume 95 fL (80-97); Mean Platelet Volume 8.4 fL (7.4-10.4); Platelet Count 399 10^3/uL (150-450); Red Cell Distribution Width 13 % (10-15); White Blood Count 18.1 10^3/uL (3.5-10.8)
[2021-01-30 08:05] VITALS: BP 120/71
== END 2021-01-30 13:15 | disposition home or self-care (01) | DRG 540 ==
LOC: MCHOBOUT 23:41 → MCHOB 01-29 00:17
PROVIDERS: ADMIT Obstetrics & Gynecology; ATTEND Obstetrics & Gynecology